=== PATIENT | male | born 2000 | race American Indian/Alaskan Native ===

== ENCOUNTER → 2020-09-23 | Emergency (ER) | payer SELFPAY ==
[~2020-09-23] VITALS: Ht 157.5 cm; Wt 66.8 kg
[2020-09-23 23:09] VITALS: BP 113/55; PULSE 84; TEMP 98.2
== END ==
LOC: COL.ER 22:46
DX: S61.216A Laceration without foreign body of right little finger without damage to nail, initial encounter (principal); Z53.21 Procedure and treatment not carried out due to patient leaving prior to being seen by health care provider; Z88.2 Allergy status to sulfonamides; W26.0XXA Contact with knife, initial encounter